=== PATIENT | male | born 1990 ===

== ENCOUNTER 2019-12-26 12:00 | Emergency (ER) | payer OTHER ==
[~2019-12-26] VITALS: Ht 172.7 cm; Wt 66.7 kg
[2019-12-26] MEDS ORDERED: BIKTARVY 50-201 EACH PO (12:33)
== END 2019-12-26 17:29 | disposition home or self-care (01) ==
LOC: ER 12:00
DX: A53.9 Syphilis, unspecified (principal)

== ENCOUNTER → 2020-09-01 | Emergency (ER) | payer OTHER ==
[~2020-09-01] VITALS: Ht 172.7 cm; Wt 65.8 kg
[~2020-09-01] MED LIST: BIKTARVY 50-201 EACH PO
== END | disposition left against medical advice (07) ==
LOC: ER 11:11
DX: K59.09 Other constipation (principal); Z03.818 Encounter for observation for suspected exposure to other biological agents ruled out; R10.11 Right upper quadrant pain